=== PATIENT | female | born 1955 | race Caucasian/White ===

== ENCOUNTER 2019-09-21 11:06 | Emergency (ER) | payer MEDICARE ==
[~2019-09-21] VITALS: Ht 152.4 cm; Wt 58.0 kg
[2019-09-21] MEDS ORDERED: DIPH,PERTUSS(ACELL),TET VAC/PF 0.5 ML IM-VACC ONE ×2 (11:30→11:55)
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
[2019-09-21] MEDS ORDERED: PLEASE ENTER ALLERGIES MC SCH (12:00)
[2019-09-21] MEDS ORDERED: LIDOCAINE-MPF 1%, 5ML ONE (12:06)
[2019-09-21] MEDS ORDERED: LIDOCAINE-MPF 1%, 5ML INFIL ONE (12:30)
[2019-09-21 12:40] VITALS: BP 163/78
[2019-09-21] MEDS ORDERED: LORazepam 2 MG/ML, 1ML IVPush PRN (13:00)
[2019-09-21] MEDS ORDERED: SODIUM CHLORIDE 0.9% 1,000ML IVBOLUS ONE (13:00)
--- NOTE | 2019-09-21 13:07 | NUR ---
DISCHARGE INSTRUCTIONS REVIEWED
--- NOTE | 2019-09-21 13:07 | NUR ---
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
== END 2019-09-21 13:28 | disposition home or self-care (01) ==
LOC: ED 11:39
DX: S01.01XA Laceration without foreign body of scalp, initial encounter (principal); S09.90XA Unspecified injury of head, initial encounter; V49.59XA Passenger injured in collision with other motor vehicles in traffic accident, initial encounter; Y93.89 Activity, other specified; Y92.410 Unspecified street and highway as the place of occurrence of the external cause; Y99.8 Other external cause status
CPT/HCPCS: 12001; 70450; 90471; 90715